=== PATIENT | female | born 1960 | race Caucasian/White ===

== ENCOUNTER 2016-11-30 12:02 | Emergency (ER) | payer OTHER, BC ==
[~2016-11-30] VITALS: Ht 170.2 cm; Wt 61.4 kg
[2016-11-30 12:19] VITALS: BP 102/64; PULSE 71; RESP 18; TEMP 98; O2SAT 93
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
[2016-11-30] MEDS ORDERED: MORPHINE SULFATE 4 MG/ML INJ IV PUSH ONE (12:30)
[2016-11-30] MEDS ORDERED: SODIUM CHLORIDE 0.9% FLUSH 10 ML FLUSH IV FLUSH PRN (12:30)
[2016-11-30] MEDS ORDERED: ONDANSETRON HCL 4 MG/2 ML VIAL IVP ONE (12:30)
[2016-11-30 12:32] VITALS: BP 102/68; PULSE 70; RESP 18; O2SAT 93
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
[2016-11-30 14:25] LABS: AUTOMATED NEUTROPHIL # 8.2 TH/MM3 (1.8-7.7); BASOPHIL # 0.1 TH/MM3 (0-0.2); BASOPHIL % 0.7 % (0.0-2.0); EOSINOPHIL # 0.2 TH/MM3 (0-0.4); EOSINOPHIL % 1.6 % (0.0-4.0); HEMATOCRIT 44.2 % (35.0-46.0); LYMPH % 18.9 % (9.0-44.0); LYMPHOCYTE # 2.1 TH/MM3 (1.0-4.8); MEAN CELL VOLUME 87.1 FL (80.0-100.0); MEAN CORPUSCULAR HEMOGLOBIN 27.3 PG (27.0-34.0); MEAN CORPUSCULAR HGB CONC 31.4 % (32.0-36.0); MONO % 5.9 % (0.0-8.0); NEUT % 72.9 % (16.0-70.0); PLATELET COUNT 288 TH/MM3 (150-450); RED BLOOD COUNT 5.07 MIL/MM3 (4.00-5.30); RED CELL DISTRIBUTION WIDTH 14.7 % (11.6-17.2); WHITE BLOOD COUNT 11.3 TH/MM3 (4.0-11.0)
[2016-11-30 14:26] LABS: HEMO FLAGS DIFF FINAL
[2016-11-30] MEDS ORDERED: ORPH100T99 PO (14:31)
[2016-11-30] MEDS ORDERED: EXTR500C PO (14:31)
[2016-11-30] MEDS ORDERED: IBUP800T23 PO (14:31)
[2016-11-30 14:47] VITALS: BP 108/57; PULSE 76; RESP 16; O2SAT 94
[2016-11-30 14:47] LABS: ALKALINE PHOSPHATASE 55 U/L (45-117); TOTAL BILIRUBIN ADULT 0.3 MG/DL (0.2-1.0)
[2016-11-30 14:49] VITALS: RESP 14
[2016-11-30 14:49] LABS: ALT (GPT) 16 U/L (10-53); ANION GAP 9 MEQ/L (5-15); AST (GOT) 24 U/L (15-37); BICARBONATE 28.4 MEQ/L (21.0-32.0); BLOOD UREA NITROGEN 7 MG/DL (7-18); CHLORIDE 104 MEQ/L (98-107); GLOMERULAR FILTRATION RATE 66 ML/MIN (>89); POTASSIUM 4.4 MEQ/L (3.5-5.1); SODIUM (NA) 141 MEQ/L (136-145)
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
[2016-11-30 16:46] VITALS: BP 110/58
--- NOTE | 2016-12-01 19:26 | EKG ---
Date Performed: 11/30/2016 Time Performed: 14:46:45 PTAGE: 56 years EKG: Sinus rhythm LOW QRS VOLTAGE IN EXTREMITY LEADS BORDERLINE ECG NO PREVIOUS TRACING DOCTOR: Jaime Warner Interpretating Date/Time 12/01/2016 19:24:40
== END 2016-11-30 16:47 | disposition home or self-care (01) ==
LOC: NEPE 12:02
DX: S20.219A Contusion of unspecified front wall of thorax, initial encounter (principal); S16.1XXA Strain of muscle, fascia and tendon at neck level, initial encounter; Z72.0 Tobacco use; V43.62XA Car passenger injured in collision with other type car in traffic accident, initial encounter; Y93.9 Activity, unspecified; Y92.9 Unspecified place or not applicable; Y99.9 Unspecified external cause status
CPT/HCPCS: 70450; 71250; 72125; 80053; 85025; 93005; 96374; 96375; 99284; J2270; J2405